=== PATIENT | male | born 1975 | race Caucasian/White ===

== ENCOUNTER 2018-04-18 00:03 | Inpatient (IN) | payer OTHER, SELFPAY ==
[2018-04-18 00:24] LABS: #Basophils 0.1 thou/uL (0.0-0.2); #Eosinphils 0.2 thou/uL (0.0-0.7); #Lymphocytes 1.9 thou/uL (1.20-3.40); #Monocytes 0.7 thou/uL (0.11-0.59); #Neutrophils 4.4 thou/uL (1.40-6.50); %Basophils 1.5 % (0.0-1.0); %Eosinophils 2.6 % (0.0-10.0); %Lymphocytes 26.5 % (21.0-51.0); %Monocytes 9.4 % (0.0-10.0); %Neutrophils 59.9 % (42.0-75.0); Hemoglobin 15.4 g/dL (14.0-18.0); Mean Corpuscular HGB CONC 33.7 g/dL (32.0-36.0); Mean Corpuscular Hemoglobin 32.2 pg (27.0-31.0); Mean Corpuscular Volume 95.7 fL (78.0-98.0); Mean Platelet Volume 8.2 fL (7.4-10.4); Platelet Count 255 thou/uL (130-400); RBC Distribution Width 11.3 % (11.5-14.5); Red Blood Cell (RBC) Count 4.77 mill/uL (4.70-6.10); White Blood Cell (WBC) Count 7.3 thou/uL (4.8-10.8)
[2018-04-18] MEDS ORDERED: Adacel (T-DAP) 0.5 ML SYRINGE ONE (00:37)
[2018-04-18 00:46] LABS: ALT (SGPT) 23 U/L (8-55); AST (SGOT) 19 U/L (5-34); Albumin 4.2 g/dL (3.5-5.0); Alkaline Phosphatase 84 U/L (40-150); Anion Gap 15 mmol/L (10-20); BUN (Urea Nitrogen) 16 mg/dL (8.9-20.6); Bilirubin, Total 0.9 mg/dL (0.2-1.2); Calc. Creatinine Clearance 0 mL/min (70-130); Calcium 9.3 mg/dL (7.8-10.44); Carbon Dioxide 27 mmol/L (22-29); Chloride 100 mmol/L (98-107); Estimated GFR-MDRD 75; Globulin 2.8 g/dL (2.4-3.5); Glucose 123 mg/dL (70-105); Potassium 3.5 mmol/L (3.5-5.1); Sodium 138 mmol/L (136-145)
[2018-04-18] MEDS ORDERED: Fentanyl 100 MCG/2 ML VIAL ONE ×3 (00:52→14:24)
[2018-04-18] MEDS ORDERED: Ondansetron PF 4 MG/2 ML Vial ONE ×2 (01:28→02:52)
[2018-04-18] MEDS ORDERED: Ondansetron PF 4 MG/2 ML Vial IVP PRN (03:54)
[2018-04-18] MEDS ORDERED: Dextrose 50% Abboject 50 ML SYRINGE SLOW IVP PRN (03:54)
[2018-04-18] MEDS ORDERED: Morphine 4 MG/ML VIAL SLOW IVP PRN ×2 (03:54)
[2018-04-18] MEDS ORDERED: Dextrose 5% in Water 1,000 ML IV PRN (03:54)
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
[2018-04-18 04:16] VITALS: BMI 28.3
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
[2018-04-18] MEDS: Acetaminophen 1,000 MG in Premix Bag 1 BAG IVPB SCH ×4 (04:39→16:33)
[2018-04-18] MEDS: Oxazepam 10 MG CAP PO SCH ×4 (04:39→21:18)
[2018-04-18] MEDS: Sodium Chloride 0.9% 1,000 ML IV SCH ×2 (04:39→16:17)
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
[2018-04-18] MEDS ORDERED: Famotidine/PF 20 mg/2ml Vial SLOW IVP SCH (09:00)
[2018-04-18 09:51] LABS: Anion Gap 14 mmol/L (10-20); BUN (Urea Nitrogen) 18 mg/dL (8.9-20.6); Calc. Creatinine Clearance 126 mL/min (70-130); Calcium 9.3 mg/dL (7.8-10.44); Carbon Dioxide 29 mmol/L (22-29); Chloride 101 mmol/L (98-107); Estimated GFR-MDRD 75; Glucose 162 mg/dL (70-105); Potassium 3.8 mmol/L (3.5-5.1); Sodium 140 mmol/L (136-145)
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
[2018-04-18] MEDS ORDERED: Bacitracin Zinc Ointment 30 gm TUBE ONE (13:05)
[2018-04-18] MEDS ORDERED: Lidocaine 0.5%/Epinephrine 1:200,000 50 ml Vial ONE (13:06)
[2018-04-18] MEDS ORDERED: Midazolam HCl 2 mg/2 ml Vial ONE (13:07)
[2018-04-18] MEDS ORDERED: PROPOFOL 200 MG/20 ML VIAL ONE (14:14)
[2018-04-18] MEDS ORDERED: Lidocaine 1% PF 5 ML VIAL ONE (14:14)
[2018-04-18] MEDS ORDERED: Promethazine HCl 25 MG/ML VIAL SLOW IVP PRN (15:51)
[2018-04-18] MEDS ORDERED: Ondansetron HCl/PF 4 MG/2 ML Vial IVP PRN (15:51)
[2018-04-18] MEDS ORDERED: Promethazine HCl 25 MG/ML VIAL IM PRN (15:51)
--- NOTE | 2018-04-18 16:14 | OP ---
DATE OF PROCEDURE: 04/18/2018 DETONATOR ASSEMBLER: Annette Lorenzana PA-C. PREOPERATIVE INDICATION: Prevent neurological deterioration. PREOPERATIVE DIAGNOSIS: Juan fracture, unstable. POSTOPERATIVE DIAGNOSE: Juan fracture, unstable. OPERATIVE PROCEDURE: Placement of halo vest cervical immobilization device. PREOPERATIVE MEDICATIONS: Ancef 1 g IV. DRAINS NUMBER: Zero. DRAIN TYPE: None. DESCRIPTION OF PROCEDURE: The patient was brought to the operating room. IV sedation was administered. He was carefully moved with his neck in normal anatomic alignment from the transport cart to the operating table. Here, we infused local anesthetic in the entry points for the skull screws for the halo ring. We advanced the screws into the outer table of the skull and used a torque wrench set at 6 inch pounds to ensure adequate tightness of the skull pins. When the halo ring was firmly attached to the patient's skull, we turned our attention to placement of the vest itself. He was carefully rolled and the back of vest was placed behind and the front of vest was attached and closed. We then used the rods from the halo vest and inserted them into the attachment for the halo ring above. We tightened down all the 24 bolts that attach the rods to the vest in the skull ring. These were tightened to 30 inch pounds. A final lateral x-ray showed good alignment between C1 and C2 and the occiput. The patient was carefully transferred back to the transport cart. This was a clean case, no contamination. Job ID: [id number]
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
[2018-04-18] MEDS ORDERED: ISOVUE-370 76%-LOCM 1 ML ONE ×2 (16:33→16:35)
[2018-04-18] MEDS ORDERED: Sodium Bicarbonate 150 MEQ in Dextrose 5% in Water 1,000 ML IV ONE (17:30)
[2018-04-18] MEDS ORDERED: traMADol HCl 50 MG TAB PO PRN (19:02)
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
[2018-04-18 20:06] LABS: Amphetamine Detected (NotDetected); Barbiturates Screen Not Detected (NotDetected); Benzodiazepine Screen Detected (NotDetected); Cocaine Metabolite Screen Not Detected (NotDetected); Medtox Control Line Valid? VALID (VALID); Medtox Reader # READER 4; Methadone Not Detected (NotDetected); Methamphetamine Not Detected (NotDetected); Opiate Screen Not Detected (NotDetected); Oxycodone Screen Not Detected (NotDetected); Phencyclidine (PCP) Not Detected (NotDetected); THC/Cannabinoid Screen Detected (NotDetected); Tricyclic Screen Not Detected (NotDetected)
[2018-04-18] MEDS: Ibuprofen 600 MG TAB PO SCH (21:06)
[2018-04-18] MEDS: Mag-Al 1200 mg/1200 mg/30 ML UDCUP PO SCH (21:06)
[2018-04-18] MEDS: Famotidine 20 MG TAB PO SCH (21:06)
[2018-04-19] MEDS: Acetaminophen 500 MG TAB PO SCH ×4 (00:26→18:18)
[2018-04-19] MEDS: traMADol HCl 50 MG TAB PO PRN ×2 (03:24→12:18)
[2018-04-19] MEDS: hydrALAZINE 20 MG/ML VIAL SLOW IVP PRN (04:00)
[2018-04-19] MEDS: HYDROcodone/Acetaminophen 5/325 mg Tablet PO PRN ×2 (04:10→09:32)
[2018-04-19] MEDS: Cyclobenzaprine 10 MG TAB PO PRN (04:10)
[2018-04-19] MEDS ORDERED: HYDROcodone/Acetaminophen 10/325 mg Tablet PO SCH (05:00)
[2018-04-19] MEDS: Oxazepam 10 MG CAP PO SCH ×3 (05:02→22:05)
[2018-04-19] MEDS: Ibuprofen 600 MG TAB PO SCH ×3 (05:02→22:05)
[2018-04-19 05:06] LABS: #Eosinphils 0.1 thou/uL (0.0-0.7); #Monocytes 0.8 thou/uL (0.11-0.59); #Neutrophils 6.4 thou/uL (1.40-6.50); %Basophils 0.4 % (0.0-1.0); %Lymphocytes 21.6 % (21.0-51.0); %Monocytes 8.3 % (0.0-10.0); %Neutrophils 68.7 % (42.0-75.0); Hemoglobin 14.3 g/dL (14.0-18.0); Mean Corpuscular Hemoglobin 32.6 pg (27.0-31.0); Mean Corpuscular Volume 95.9 fL (78.0-98.0); Mean Platelet Volume 8.2 fL (7.4-10.4); Platelet Count 208 thou/uL (130-400); RBC Distribution Width 11.3 % (11.5-14.5); Red Blood Cell (RBC) Count 4.39 mill/uL (4.70-6.10); White Blood Cell (WBC) Count 9.4 thou/uL (4.8-10.8)
[2018-04-19 05:25] LABS: Anion Gap 10 mmol/L (10-20); BUN (Urea Nitrogen) 9 mg/dL (8.9-20.6); Calc. Creatinine Clearance 162 mL/min (70-130); Calcium 8.8 mg/dL (7.8-10.44); Carbon Dioxide 27 mmol/L (22-29); Chloride 104 mmol/L (98-107); Estimated GFR-MDRD Greater than 90; Glucose 109 mg/dL (70-105); Magnesium 2.1 mg/dL (1.6-2.6); Phosphorus 2.8 mg/dL (2.3-4.7); Potassium 3.7 mmol/L (3.5-5.1); Sodium 137 mmol/L (136-145)
[2018-04-19] MEDS: Promethazine HCl 25 MG/ML VIAL IM PRN (06:40)
[2018-04-19] MEDS ORDERED: Morphine 4 MG/ML VIAL SLOW IVP SCH (06:45)
[2018-04-19] MEDS ORDERED: Aspirin 325 MG TAB PO SCH (09:00)
[2018-04-19] MEDS ORDERED: Aspirin 81 mg Enteric Coated Tablet PO SCH (09:00)
[2018-04-19] MEDS: Mag-Al 1200 mg/1200 mg/30 ML UDCUP PO SCH ×4 (09:33→22:05)
[2018-04-19] MEDS: Famotidine 20 MG TAB PO SCH ×2 (09:33→22:05)
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
[2018-04-19] MEDS: Aspirin 325 mg Enteric Coated Tablet PO SCH (10:24)
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
--- NOTE | 2018-04-19 13:06 | CON ---
DATE OF CONSULTATION: 04/19/2018 SUBJECTIVE: Mr. Garrett had a Halo placed yesterday. He is neurologically intact. He had a severe exacerbation of headache this morning, but it ultimately improved with medication. Head CT was checked at that time, which is satisfactory. We will find the torque wrench and make sure that the cranial screws screws are in appropriate settings. Job ID: [id number]
[2018-04-20] MEDS: Acetaminophen 500 MG TAB PO SCH ×2 (00:04→05:14)
[2018-04-20] MEDS: Ibuprofen 600 MG TAB PO SCH ×3 (05:14→22:39)
[2018-04-20] MEDS: Oxazepam 10 MG CAP PO SCH ×3 (05:15→22:40)
[2018-04-20] MEDS: hydrALAZINE 20 MG/ML VIAL SLOW IVP PRN ×2 (05:20→11:15)
[2018-04-20] MEDS: traMADol HCl 50 MG TAB PO PRN (07:14)
[2018-04-20] MEDS: Mag-Al 1200 mg/1200 mg/30 ML UDCUP PO SCH ×4 (08:59→22:39)
[2018-04-20] MEDS: Famotidine 20 MG TAB PO SCH ×2 (08:59→22:39)
[2018-04-20] MEDS: Aspirin 325 mg Enteric Coated Tablet PO SCH (08:59)
[2018-04-20] MEDS: HYDROcodone/Acetaminophen 5/325 mg Tablet PO PRN (10:01)
[2018-04-20] MEDS: Cyclobenzaprine 10 MG TAB PO PRN (11:15)
[2018-04-20] MEDS: Acetaminophen 325 MG TAB PO SCH ×3 (11:27→23:52)
[2018-04-20] MEDS: traMADol HCl 50 MG TAB PO SCH ×3 (12:18→23:53)
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
[2018-04-20] MEDS ORDERED: Lisinopril 5 MG TAB PO SCH (23:15)
[2018-04-21] MEDS: Ibuprofen 600 MG TAB PO SCH ×3 (05:38→21:45)
[2018-04-21] MEDS: Acetaminophen 325 MG TAB PO SCH ×4 (05:38→23:31)
[2018-04-21] MEDS: traMADol HCl 50 MG TAB PO SCH ×4 (05:38→23:32)
[2018-04-21] MEDS: Oxazepam 10 MG CAP PO SCH (05:39)
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
[2018-04-21] MEDS: Famotidine 20 MG TAB PO SCH ×2 (08:28→21:45)
[2018-04-21] MEDS: Aspirin 325 mg Enteric Coated Tablet PO SCH (08:28)
[2018-04-21] MEDS: Mag-Al 1200 mg/1200 mg/30 ML UDCUP PO SCH ×4 (08:29→21:45)
[2018-04-21] MEDS ORDERED: Lisinopril 5 MG TAB PO SCH (09:00)
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
[2018-04-22] MEDS: Promethazine HCl 25 MG/ML VIAL IM PRN (00:17)
[2018-04-22] MEDS: Acetaminophen 325 MG TAB PO SCH ×3 (05:58→17:19)
[2018-04-22] MEDS: Ibuprofen 600 MG TAB PO SCH ×3 (05:58→21:25)
[2018-04-22] MEDS: traMADol HCl 50 MG TAB PO SCH ×3 (05:59→17:20)
--- NOTE | 2018-04-22 07:15 | PRG ---
DATE OF SERVICE: 04/22/2018 I saw Rolando Garrett in his hospital room this morning. Much more awake and alert than he has been during my previous evaluations. He complains that when he sits up, his head feels bit heavy. Activities of daily living and eating are quite a chore for him in his halo. Vitals have been stable. Blood pressures have been in the 130s to 150s. NEURO: I do not find any new neurological deficit. e will keep Mr. Garrett on a daily aspirin. We are going to re-torque the screws in the head ring Saturday or Saturday. We are going to re- torque the bolts attaching to the vest as well. CT angiography after halo placement showed better alignment of C1 and C2 than the original CT scan, which is good. Mr. Garrett would benefit from inpatient rehabilitation, getting used to wearing his halo. Job ID: [id number] [facility]
[2018-04-22] MEDS: Famotidine 20 MG TAB PO SCH (08:39)
[2018-04-22] MEDS: Aspirin 325 mg Enteric Coated Tablet PO SCH (08:39)
[2018-04-22] MEDS: Mag-Al 1200 mg/1200 mg/30 ML UDCUP PO SCH ×4 (08:40→21:26)
[2018-04-22] MEDS: Lisinopril 20 MG TAB PO SCH (08:40)
[2018-04-22] MEDS: Cyclobenzaprine 10 MG TAB PO PRN ×2 (08:50→21:49)
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
[2018-04-22] MEDS: Senokot S 8.6-50 MG TAB PO SCH (21:25)
[2018-04-23] MEDS: traMADol HCl 50 MG TAB PO SCH ×4 (00:11→16:27)
[2018-04-23] MEDS: Acetaminophen 325 MG TAB PO SCH ×4 (00:12→16:27)
[2018-04-23] MEDS: Ibuprofen 600 MG TAB PO SCH ×2 (05:35→13:50)
--- NOTE | 2018-04-23 08:10 | PRG ---
DATE OF SERVICE: 04/23/2018 SUBJECTIVE: I saw Mr. Garrett this morning. A bed has been found for him in inpatient rehabilitation, so we can adjust the life in a halo for the next 2 to 3 months. I think that is a reasonable move from the hospital. Interestingly, when he sits up, he feels a pressure from his head down onto his spine. The shoulder straps are bit loose above the shoulders and we can correct this. If he is in rehab later today, we can find him there with our adjustment wrenches or we can catch up with him on or Saturday with the help of some assistance at bedside holding the head, we can even add a centimeter to each of the rods. Adjustments can be made and we can retrieve an x-ray. Job ID: [id number]
[2018-04-23] MEDS: Aspirin 325 mg Enteric Coated Tablet PO SCH (08:41)
[2018-04-23] MEDS: HYDROcodone/Acetaminophen 5/325 mg Tablet PO PRN ×2 (08:41→14:45)
[2018-04-23] MEDS: Cyclobenzaprine 10 MG TAB PO PRN ×2 (08:44→16:23)
[2018-04-23] MEDS: Lisinopril 20 MG TAB PO SCH (08:45)
[2018-04-23] MEDS: Senokot S 8.6-50 MG TAB PO SCH (08:45)
[2018-04-23] MEDS: Mag-Al 1200 mg/1200 mg/30 ML UDCUP PO SCH ×2 (08:46→11:51)
[2018-04-23] MEDS ORDERED: Polyethylene Glycol 3350 17 GM Packet PO SCH (09:00)
--- NOTE | 2018-04-23 15:54 | PRG ---
DATE OF SERVICE: 04/23/2018 I made some adjustments to Mr. Garrett' halo. He feels like his head is not holding the entire weight of the halo anymore and some is distributed to his shoulders. He is appreciative of that and the pain is much better. Mr. Garrett will be ready for inpatient rehabilitation. Our office will make arrangements for a followup appointment to tighten the halo ring screws into the skull. Job ID: [id number]
[2018-04-23] MEDS ORDERED: Acetaminophen 325 MG TAB PO SCH (16:15)
[2018-04-23] MEDS ORDERED: traMADol HCl 50 MG TAB PO SCH (16:15)
[2018-04-23 16:23] VITALS: BP 136/94; TEMP 98.3
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
== END 2018-04-23 16:52 | DRG 551 ==
LOC: ERS 00:03 → SURG B 03:06
PROVIDERS: ADMIT Specialist; ATTEND Specialist
PROC: 2W62X0Z Traction of Neck using Traction Apparatus (ICD-10-PCS; principal; 2018-04-18)
DX: S12.090A Other displaced fracture of first cervical vertebra, initial encounter for closed fracture (principal); I77.74 Dissection of vertebral artery; S06.0X1A Concussion with loss of consciousness of 30 minutes or less, initial encounter; J44.9 Chronic obstructive pulmonary disease, unspecified; I10 Essential (primary) hypertension; V40.6XXA Car passenger injured in collision with pedestrian or animal in traffic accident, initial encounter; Z23 Encounter for immunization; F20.9 Schizophrenia, unspecified; F17.210 Nicotine dependence, cigarettes, uncomplicated; Y92.413 State road as the place of occurrence of the external cause; F12.90 Cannabis use, unspecified, uncomplicated; F14.90 Cocaine use, unspecified, uncomplicated; F15.90 Other stimulant use, unspecified, uncomplicated; S01.01XA Laceration without foreign body of scalp, initial encounter; Z79.899 Other long term (current) drug therapy
CPT/HCPCS: 36415; 70450; 70498; 71260; 72125; 74177; 76000; 80048; 80053; 80306; 80307; 83735; 84100; 85025; 90471; 90715; 96374; 96375; 96376; G0390; J0131; J0360; J2001; J2250; J2270; J2405; J2550; J2704; J3010; J7070; J7620; Q9966; S0028

== ENCOUNTER 2018-05-16 13:47 | Outpatient (CLI) | payer SELFPAY ==
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
== END 2018-05-16 13:48 | disposition home or self-care (01) ==
LOC: TBSIIMAG 13:47
PROVIDERS: ATTEND Neurological Surgery
DX: S12.01XD Stable burst fracture of first cervical vertebra, subsequent encounter for fracture with routine healing (principal)
CPT/HCPCS: 72040

== ENCOUNTER 2018-05-25 03:37 | Observation (INO) | payer SELFPAY ==
[2018-05-25 07:10] VITALS: BMI 30.4
--- NOTE | 2018-05-25 07:31 | RAD ---
CHEST 1 VIEW: Date: 05/25/18 INDICATION: Chest pain. COMPARISON: Prior exam dated 05/21/18. IMPRESSION: No definite acute cardiopulmonary abnormality is evident. Neck brace is again seen overlying the ches t. POS: [facility]
[2018-05-25] MEDS ORDERED: Benzonatate 100 MG CAP PO PRN (07:36)
[2018-05-25] MEDS ORDERED: Ondansetron PF 4 MG/2 ML Vial IVP PRN (07:36)
[2018-05-25] MEDS ORDERED: Sodium Chloride 0.65% Nasal 44 ML BOT EA NARE PRN (07:36)
[2018-05-25] MEDS ORDERED: Acetaminophen 500 MG TAB PO PRN (07:36)
[2018-05-25] MEDS ORDERED: cloNIDine 0.1 MG TAB PO PRN (07:36)
[2018-05-25] MEDS ORDERED: Diabetic Tussin 200 MG/10 ML UDCUP PO PRN (07:36)
[2018-05-25] MEDS ORDERED: hydrALAZINE 20 MG/ML VIAL SLOW IVP PRN (07:36)
[2018-05-25] MEDS ORDERED: Senokot S 8.6-50 MG TAB PO PRN (07:36)
[2018-05-25] MEDS ORDERED: Nitroglycerin 0.4 MG TAB (25 Tab Bottle) SL PRN (07:36)
[2018-05-25 08:16] VITALS: BP 127/90; TEMP 97.5
[2018-05-25 09:23] LABS: Troponin I Less than 0.010 ng/mL (< 0.028)
[2018-05-25] MEDS ORDERED: traMADol HCl 50 MG TAB PO PRN (09:28)
[2018-05-25 12:04] LABS: Troponin I Less than 0.010 ng/mL (< 0.028)
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
== END 2018-05-25 15:29 | disposition home or self-care (01) ==
LOC: ERS 03:37 → 2SW 05:38
PROVIDERS: ADMIT Hospitalist; ATTEND Hospitalist
DX: R07.9 Chest pain, unspecified (principal); F20.9 Schizophrenia, unspecified; F17.210 Nicotine dependence, cigarettes, uncomplicated; F12.10 Cannabis abuse, uncomplicated; F10.11 Alcohol abuse, in remission; I10 Essential (primary) hypertension; J44.9 Chronic obstructive pulmonary disease, unspecified; S12.090D Other displaced fracture of first cervical vertebra, subsequent encounter for fracture with routine healing; Z79.82 Long term (current) use of aspirin; Z79.899 Other long term (current) drug therapy; V89.2XXD Person injured in unspecified motor-vehicle accident, traffic, subsequent encounter
CPT/HCPCS: 36415; 71045; 93005; G0378

== ENCOUNTER 2018-06-11 10:04 | Outpatient (CLI) | payer OTHER, SELFPAY ==
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
== END 2018-06-11 10:05 | disposition home or self-care (01) ==
LOC: TBSIIMAG 10:04
PROVIDERS: ATTEND Neurological Surgery
DX: S12.01XD Stable burst fracture of first cervical vertebra, subsequent encounter for fracture with routine healing (principal)
CPT/HCPCS: 72040